=== PATIENT | female | born 1980 | race Asian ===

== ENCOUNTER 2017-08-23 07:39 | Inpatient (IN) | payer SELFPAY ==
[~2017-08-23] VITALS: Ht 142.2 cm; Wt 71.7 kg
[2017-08-23] MEDS ORDERED: PROMETHAZINE 25 MG/ML VIAL IVP PRN (08:10)
[2017-08-23] MEDS ORDERED: AMPICILLIN 2,000 MG in NACL 0.9% MINI-BAG PLUS 100 ML IV SCH (08:10)
[2017-08-23] MEDS ORDERED: NALBUPHINE HYDROCHLORIDE 10 MG/ML VIAL IVP PRN (08:10)
[2017-08-23] MEDS ORDERED: METHYLERGONOVINE 0.2 MG/ML AMP IM PRN ×3 (08:10→22:10)
[2017-08-23] MEDS ORDERED: MISOPROSTOL 25 MCG TAB VG PRN (08:10)
[2017-08-23] MEDS ORDERED: OXYTOCIN 10 UNITS/ML VIAL IM SCH (08:10)
[2017-08-23] MEDS ORDERED: CARBOPROST 250 MCG/ML AMP IM PRN (08:10)
[2017-08-23 08:48] LABS: BASOPHILS # (AUTO) 0.1 K/uL (0.00-0.22); BASOPHILS % (AUTO) 0.6 % (0.0-2.0); EOSINOPHILS # (AUTO) 0.2 K/uL (0-0.4); EOSINOPHILS % (AUTO) 2.5 % (0.0-4.0); HEMATOCRIT 31.3 % (36-48); HEMOGLOBIN 10.5 g/dL (12.0-16.0); LYMPHOCYTES # (AUTO) 1.9 K/uL (2.5-16.5); LYMPHOCYTES % (AUTO) 22.4 % (20.5-51.1); MEAN CORPUSCULAR HEMOGLOBIN 30 pg (27-31); MEAN CORPUSCULAR HGB CONC 34 g/dL (33-37); MEAN CORPUSCULAR VOLUME 88 fL (80-94); MONOCYTES # (AUTO) 0.7 K/uL (0.8-1.0); MONOCYTES % (AUTO) 8.2 % (1.7-9.3); NEUTROPHILS # (AUTO) 5.5 K/uL (1.8-7.7); NEUTROPHILS % (AUTO) 66.3 % (42.2-75.2); PLATELET COUNT (AUTO) 232 K/uL (140-450); RED BLOOD CELL COUNT(AUTO) 3.54 MIL/uL (4.20-5.40); RED CELL DISTRIBUTION WIDTH 12.5 % (11.6-13.7); WHITE BLOOD COUNT (AUTO) 8.4 K/uL (4.8-10.8)
--- NOTE | 2017-08-23 08:51 | NUR ---
PATIENT HAS BEEN SCREENED AND CATEGORIZED LOW NUTRITION RISK. PATIENT WILL BE SEEN WITHIN 7 DAYS OF ADMISSION. 08/29/[address]
[2017-08-23 09:08] LABS: ALBUMIN 2.6 g/dL (3.4-5.0); ANION GAP 16.6 (8-16); CARBON DIOXIDE 23.1 mmol/L (21-32); CREATININE 0.5 mg/dL (0.6-1.3); POTASSIUM 3.7 mmol/L (3.5-5.1); TOTAL BILIRUBIN 0.2 mg/dL (0.0-1.0)
[2017-08-23 09:22] LABS: APPEARANCE,URINE HAZY (CLEAR); BILIRUBIN,URINE NEGATIVE (NEGATIVE); BLOOD, URINE 1+ (NEGATIVE); COLOR,URINE YELLOW (YELLOW); LEUKOCYTE ESTERASE ,URINE 2+ (NEGATIVE); NITRITE, URINE NEGATIVE (NEGATIVE); UGLUCOSE NEGATIVE (NEGATIVE)
[2017-08-23 09:51] LABS: RBC,URINE 0-5 (RARE) /HPF (0-5)
[2017-08-23 09:52] LABS: YEAST,URINE Few /HPF (None Seen)
[2017-08-23] MEDS ORDERED: MISOPROSTOL 25 MCG TAB ONE (10:02)
[2017-08-23] MEDS: LACTATED RINGERS 1,000 ML IV SCH ×2 (10:08→15:08)
[2017-08-23] MEDS ORDERED: AMPICILLIN 1,000 MG in NACL 0.9% MINI-BAG PLUS 50 ML IV SCH (12:00)
[2017-08-23] MEDS ORDERED: OXYTOCIN 20 UNITS in LACTATED RINGERS 1,000 ML IV SCH ×4 (15:00)
[2017-08-23] MEDS ORDERED: BUPIVACAINE 0.125%/NS PREMIX 250 ML ONE (15:22)
[2017-08-23] MEDS ORDERED: BUPIVACAINE 0.125%/NS PREMIX 250 ML EPI SCH (16:05)
[2017-08-23] MEDS ORDERED: OXYTOCIN 10 UNITS/ML VIAL ONE (21:00)
[2017-08-23] MEDS ORDERED: TEMAZEPAM 15 MG CAP PO PRN ×2 (22:10)
[2017-08-23] MEDS ORDERED: HYDROcodone/APAP 5/325 MG 1 TAB TAB PO PRN ×2 (22:10)
[2017-08-23] MEDS ORDERED: BENZOCAINE/MENTHOL 20%-0.5% 60 GM CAN TP PRN ×2 (22:10)
[2017-08-23] MEDS ORDERED: MEASLES, MUMPS, AND RUBELLA 1 VIAL SQVAC PRN ×2 (22:10)
[2017-08-23] MEDS ORDERED: oxyCODONE/APAP 5/325 MG 1 TAB TAB PO PRN ×2 (22:10)
[2017-08-23] MEDS ORDERED: OXYTOCIN 10 UNITS/ML VIAL IM PRN ×2 (22:10)
[2017-08-23] MEDS ORDERED: IBUPROFEN 800 MG TAB PO PRN (22:10)
[2017-08-24 06:57] LABS: HEMATOCRIT 26.6 % (36-48)
[2017-08-24] MEDS: IBUPROFEN 800 MG TAB PO PRN ×3 (08:33→23:56)
[2017-08-24 11:02] LABS: RAPID PLASMA REAGIN NON-REACTIVE (Non Reactiv)
[2017-08-24] MEDS ORDERED: DOCUSATE SOD/SENNA 50/8.6 MG 1 TAB PO SCH ×2 (21:00)
[2017-08-24] MEDS ORDERED: INFLUENZA VIRUS VACCINE QUAD 0.5 ML SYR IMVAC SCH (22:30)
[2017-08-25] MEDS ORDERED: INFLUENZA VIRUS VACCINE QUAD 0.5 ML SYR IMVAC SCH (02:00)
[2017-08-25] MEDS ORDERED: BUPIVACAINE 0.125%/NS PREMIX 250 ML EPI SCH (09:10)
== END 2017-08-25 14:15 | disposition home or self-care (01) | DRG 775 ==
LOC: MLD 07:39 → MFCC 08-24 04:20
PROVIDERS: ADMIT Obstetrics & Gynecology; ATTEND Obstetrics & Gynecology
PROC: 10E0XZZ Delivery of Products of Conception, External Approach (ICD-10-PCS; principal; 2017-08-23)
PROC: 10907ZC Drainage of Amniotic Fluid, Therapeutic from Products of Conception, Via Natural or Artificial Opening (ICD-10-PCS; 2017-08-23)
PROC: 3E0234Z Introduction of Serum, Toxoid and Vaccine into Muscle, Percutaneous Approach (ICD-10-PCS; 2017-08-23)
PROC: 3E0R3BZ Introduction of Anesthetic Agent into Spinal Canal, Percutaneous Approach (ICD-10-PCS; 2017-08-23)
PROC: 00HU33Z Insertion of Infusion Device into Spinal Canal, Percutaneous Approach (ICD-10-PCS; 2017-08-23)
DX: O80 Encounter for full-term uncomplicated delivery (principal); Z23 Encounter for immunization; Z37.0 Single live birth; Z3A.39 39 weeks gestation of pregnancy
CPT/HCPCS: 36415; 51702; 59200; 59409; 80053; 81001; 85018; 85025; 86592; 86886; 86900; 86901; 87086; 90658; 90715; J2590; J3490; J7120